=== PATIENT | female | born 1950 | race Caucasian/White ===

== ENCOUNTER 2017-12-15 09:09 | Emergency (ER) | payer OTHER, MEDICARE ==
[~2017-12-15] VITALS: Ht 165.1 cm; Wt 68.0 kg
[~2017-12-15 09:09] MED LIST: ADVIL COLD & S1 EACH PO; BUPROPION XL150 MG PO; FISH OIL 1,2001 EAC2 PO; FLAX OIL1000 M1 PO; LISINOPRIL-HCT1 EAC2 PO; LORAZEPAM1 M1 PO; PROAIR HFA0.09 MG/Ac INH; ROBITUSSIN W/CO10 ML PO; VITAMIN D2000 UNI1 PO; ZITHROMAX Z-PA250 M1 PO; ZITHROMAX250 M2 PO
[2017-12-15 09:42] LABS: ABSOLUTE BASOPHIL COUNT 0 /CUMM (0.0-0.2); ABSOLUTE EOSINOPHIL COUNT 0 /CUMM (0.0-0.7); ABSOLUTE GRANULOCYTE CT 7.4 /CUMM (1.4-6.5); ABSOLUTE LYMPH COUNT 2.2 /CUMM (1.2-3.4); ABSOLUTE MONOCYTE COUNT 0.5 /CUMM (0.10-0.60); BASOPHIL % 0.4 % (0.0-2.0); EOSINOPHIL % 0.4 % (0-5); GRANULOCYTE % 72.4 % (42.2-75.2); HEMATOCRIT 45.9 % (37-47); MEAN CORPUSCULAR HGB 30.5 PG (27.0-31.0); MEAN CORPUSCULAR HGB CONC 34.5 G/DL (33.0-37.0); MEAN CORPUSCULAR VOLUME 88.3 FL (81.0-99.0); MEAN PLATELET VOLUME 8.8 FL (7.4-10.4); PLATELET COUNT 235 /CUMM (130-400); RBC DISTRIBUTION WIDTH 13.4 % (11.5-14.5); RED BLOOD CELL CT 5.19 /CUMM (4.20-5.40); WHITE BLOOD CELL COUNT 10.2 /CUMM (4.8-10.8)
--- NOTE | 2017-12-15 09:44 | ED AMS/SEIZURE/WEAK/DIZZY ---
History of Present Illness General Chief Complaint: General Adult Stated Complaint: GENERAL WEAKNESS X3 DAYS Source: patient Exam Limitations: no limitations Vital Signs & Intake/Output Vital Signs & Intake/Output Vital Signs Date Time Temp Pulse Resp B/P B/P Pulse O2 O2 Flow FiO2 Mean Ox Delivery Rate 12/15 1450 77 136/79 12/15 1438 98.6 70 20 149/70 96 Room Air 12/15 1255 98.1 69 18 132/65 95 Room Air 12/15 1118 97.5 83 18 143/72 95 Room Air 12/15 0916 97.8 83 18 136/88 98 Room Air Room Air Allergies Coded Allergies: NO KNOWN ALLERGIES (07/21/15) Reconcile Medications Clonazepam 1 MG TABLET 1 TAB PO BIDP PRN ANXIETY (Reported) Lisinopril/Hydrochlorothiazide (Lisinopril-Hctz 10-12.5 MG Tab) 10 MG-12.5 MG TABLET 1 TAB PO DAILY BP (Reported) Sertraline HCl 25 MG TABLET 1 TAB PO DAILY MENTAL HEALTH (Reported) Triage Note: BIBA FROM HOME, PT C/O GENERALIZED WEAKNESS, NO ENERGY, "FELT DIZZY THIS MORNING". PT RECENTLY TAKEN OFF A DEPRESSION MED, "BUT I GOT SO DEPRESSED, GOT PUT ON ZOLOFT 4 DAYS AGO". PT TEARY IN TRIAGE. Triage Nurses Notes Reviewed? yes Onset: Abrupt Duration: better Timing: single episode today Severity: moderate Severity Numbers: 5 HPI: Patient is 66-year-old female with a past medical history of anxiety depression and hypertension who presents emergency room stating that when she woke up today patient had generalized dizziness and presyncopal symptoms that has made her anxiety much worse. Patient states that earlier last week she changed her prescription of Effexor to Zoloft. Patient denies any fever chills chest pain arm pain jaw pain shortness breath and leg swelling hemoptysis Denies any alcohol or drug use denies any suicide or homicidal ideation. (Ciro RICARDO,Severo) Past History Travel History Traveled to [place] past 21 day No Medical History Any Pertinent Medical History? see below for history Neurological: NONE EENT: NONE Cardiovascular: hypertension Respiratory: NONE Gastrointestinal: NONE Hepatic: NONE Renal: NONE Musculoskeletal: NONE Psychiatric: anxiety, depression Endocrine: ?PARATHYROID Blood Disorders: NONE Cancer(s): NONE ASSOCIATE APPLICATION DEVELOPER/Reproductive: NONE Surgical History Surgical History: non-contributory Psychosocial History What is your primary language Swedish Tobacco Use: Current Daily Use Daily Tobacco Use Amount/Type: => 5 Cigarettes daily ETOH Use: denies use Illicit Drug Use: denies illicit drug use Family History Hx Contributory? No (Severo West) Review of Systems Review of Systems Constitutional: Reports: see HPI. EENTM: Reports: no symptoms. Respiratory: Reports: no symptoms. Cardiovascular: Reports: no symptoms. GI: Reports: no symptoms. Genitourinary: Reports: no symptoms. Musculoskeletal: Reports: no symptoms. Skin: Reports: no symptoms. Neurological/Psychological: Reports: see HPI. Hematologic/Endocrine: Reports: no symptoms. Immunologic/Allergic: Reports: no symptoms. All Other Systems: Reviewed and Negative (Severo West) Physical Exam Physical Exam General Appearance: no apparent distress, alert Head: atraumatic Eyes: Bilateral: normal appearance, PERRL, EOMI. Ears, Nose, Throat: normal pharynx, normal ENT inspection Neck: normal inspection Respiratory: normal breath sounds, chest non-tender Cardiovascular: regular rate/rhythm Gastrointestinal: normal bowel sounds, soft, non-tender Extremities: normal range of motion Neurologic/Psych: no motor/sensory deficits, awake, alert, oriented x 3, normal gait Skin: intact, normal color, warm/dry Core Measures ACS in differential dx? Yes CVA/TIA Diagnosis No Sepsis Present: No Sepsis Focused Exam Completed? No (Severo West) Progress Differential Diagnosis: arrythmia, alcohol intoxication, anemia, benign positional vertigo, CVA/stroke, dehydration, drug intoxication, encephalitis, electrolyte imbalance, GI bleed, hypoglycemia, hypoxia, intracranial Hem., intracranial mass/tumor, labrynthitis, meningitis, Meniere's disease, migraine TEMPLE, multiple sclerosis, pneumonia, postural hypotension, presyncope, post- traumatic vertigo, sepsis, seizure disorder, subarachnoid Hem., UTI/pyelo, vertebrobasilar insuff Plan of Care: Orders Procedure Date/time Status Heart Healthy Diet 12/15 D Active TROPONIN LEVEL 12/15 1320 Complete EKG 12/15 1320 Active Add-on Test (ER Only) 12/15 1156 Active MISTAKE 12/15 1156 Active EKG 12/15 1156 Active EKG 12/15 1014 Active THYROID STIMULATING HORMONE 12/15 0920 Complete THYROXINE 12/15 0920 Complete MAGNESIUM 05/16 0920 Complete Saline Lock 12/15 912 Active TROPONIN LEVEL 12/15 912 Complete COMPREHENSIVE METABOLIC PANEL 12/15 912 Complete CBC WITHOUT DIFFERENTIAL 12/15 912 Complete Laboratory Tests 12/15/17 1333: Troponin I < 0.01 12/15/17 1156: Troponin I Cancelled 12/15/17 09: Anion Gap 11, Estimated GFR > 60, BUN/Creatinine Ratio 21.7, Glucose 138 H, Calcium 11.2 H, Magnesium 1.8, Total Bilirubin 0.7, AST 22, ALT 30, Alkaline Phosphatase 82, Troponin I < 0.01, Total Protein 8.1, Albumin 4.5, Globulin 3.6, Albumin/Globulin Ratio 1.3, TSH 1.000, Thyroxine (T4) 9.9, CBC w Diff NO MAN DIFF REQ, RBC 5.19, MCV 88.3, MCH 30.5, MCHC 34.5, RDW 13.4, MPV 8.8, Gran % 72.4, Lymphocytes % 21.8, Monocytes % 5.0, Eosinophils % 0.4, Basophils % 0.4, Absolute Granulocytes 7.4 H, Absolute Lymphocytes 2.2, Absolute Monocytes 0.5, Absolute Eosinophils 0, Absolute Basophils 0 Patient on initial examination is resting comfortably at bedside however she begins talking about her symptoms becomes anxious, patient denies any cardiovascular or respiratory complaints denies any chest pain shortness of breath Patient received blood work EKG and second set troponin after 4 hours that were unremarkable and unchanged. Patient was given a meal patient noted to be emulating with steady gait and was asymptomatic on discharge. Patient's cranial NERVES intact no neurological deficit. I had a long extensive conversation with patient and she will follow-up with the psychiatrist patient also was asking about medical marijuana which I strongly advised patient to follow up with her provider. Upon discharge patient looks well no apparent distress and will comply with discharge instructions and had no questions NO CONCERN OF ICH OF CVA PT HAD NORMAL STEADY GAIT IS AT CAPACITY TO MAKE DECISIONS Initial ED EKG: normal p-waves, normal QRS complex, normal sinus rhythm, 667 BPM ,NSR Prior EKG: unchanged Repeat EKG: unchanged (Severo West) Departure Departure Disposition: HOME OR SELF CARE Condition: Stable Clinical Impression Primary Impression: Dizziness Secondary Impressions: Anxiety, Depression Referrals: Mignon Fortune APRN (PCP/Family) Additional Instructions: As discussed continue home medications as directed and follow-up with your psychiatric provider tomorrow for further evaluation treatment. If symptoms worsen or if YOU develop any new concerning symptom return to emergency room. Departure Forms: Customer Survey General Discharge Information (Ciro RICARDO,Severo) PA/HOUSE PRINCIPAL Co-Sign Statement Statement: ED Attending supervision documentation- [x] I saw and evaluated the patient. I have also reviewed all the pertinent lab results and diagnostic results. I agree with the findings and the plan of care as documented in the PA's/HOUSE PRINCIPAL's documentation. [] I have reviewed the ED Record and agree with the PA's/HOUSE PRINCIPAL's documentation. [] Additions or exceptions (if any) to the PAs/HOUSE PRINCIPAL's note and plan are summarized below: [] (Luis Quintero DO)
[2017-12-15] MEDS ORDERED: SERTRALINE HCL25 MG PO (10:36)
[2017-12-15] MEDS ORDERED: CLONAZEPAM1 M2 PO (10:37)
[2017-12-15 14:50] VITALS: BP 136/79
== END 2017-12-15 15:07 ==
LOC: ERH 09:09
PROVIDERS: Emergency Medicine
DX: R42 Dizziness and giddiness (principal); F41.9 Anxiety disorder, unspecified; F32.9 Major depressive disorder, single episode, unspecified
CPT/HCPCS: 93005; 93010